=== PATIENT | female | born 1995 | race African-American/Black ===

== ENCOUNTER 2018-08-01 19:22 | Emergency (ER) | payer OTHER, SELFPAY ==
[2018-08-01 19:56] LABS: Bilirubin Negative (Negative); Blood, Urine Large (Negative); Clarity CLEAR (Clear); Glucose, Urine (Dipstick) Negative (Negative); Leukocyte Small (Negative); Nitrite Negative (Negative); Protein, Urine (Dipstick) Negative (Neg-Trace); Specific Gravity, Urine 1.031 (1.002-1.036); pH, Urine 6.5 (5.0-9.0)
[2018-08-01 19:57] LABS: Bacteria/HPF None Seen HPF (None Seen); Hyaline Casts/LPF 0-3 HYALINE CAST LPF (0-3 Hyaline); Pathc Cast-AUWi Flag 0.43 (0-2.49); Squamous Epithelial 0-3 HPF (0-3)
[2018-08-01 19:59] LABS: Pregnancy Test - Urine (BHCG) Negative (Negative); Pregu Control Background? CLEAR/WHITE (CLR/WHITE); Pregu Control Bar Appear? YES (CONTROL BAR); Specific Gravity 1.031 (1.002-1.036)
[2018-08-01] MEDS ORDERED: Ketorolac Tromethamine 60 MG/2 ML VIAL ONE (22:14)
[2018-08-01] MEDS ORDERED: Lidocaine 1% PF 5 ML VIAL ONE ×2 (22:14→22:15)
[2018-08-01] MEDS ORDERED: cefTRIAXone\\ROCEPHIN 1 GM VIAL ONE (22:14)
== END 2018-08-01 22:25 | disposition home or self-care (01) ==
LOC: ERS 19:22
DX: N39.0 Urinary tract infection, site not specified (principal)
CPT/HCPCS: 81003; 81015; 81025; 96372; J0696; J1885; J2001

== ENCOUNTER 2019-01-06 08:14 | Emergency (ER) | payer BC, SELFPAY | END 2019-01-06 09:14 | disposition home or self-care (01) | LOC: ERS 08:14 | DX: J06.9 Acute upper respiratory infection, unspecified (principal) | CPT/HCPCS: 87804; 99284 ==

== ENCOUNTER 2020-04-15 09:23 | Emergency (ER) | payer OTHER ==
[2020-04-15 18:57] LABS: SARS-CoV-2 MS2 Positive; SARS-CoV-2 N Gene Negative; SARS-CoV-2 S Gene Negative; SARS-CoV-2 orf1ab Negative
== END 2020-04-15 10:34 | disposition home or self-care (01) ==
LOC: ERS 09:23
DX: R09.89 Other specified symptoms and signs involving the circulatory and respiratory systems (principal); R06.02 Shortness of breath; R11.0 Nausea; R19.7 Diarrhea, unspecified; R51 Headache; Z20.828 Contact with and (suspected) exposure to other viral communicable diseases
CPT/HCPCS: 87635; 99284; U0003

== ENCOUNTER → 2020-10-21 | Emergency (ER) | payer OTHER | LOC: ERS 00:33 | DX: R09.81 Nasal congestion (principal) | CPT/HCPCS: 99281 ==

== ENCOUNTER 2020-12-03 22:16 | Emergency (ER) | payer MEDICAID, OTHER ==
[2020-12-03 22:44] LABS: Bilirubin Negative (Negative); Blood, Urine Negative (Negative); Clarity Clear (Clear); Glucose, Urine (Dipstick) Normal (Negative); Ketone, Urine Negative (Negative); Leukocyte Negative Leu/uL (Negative); Nitrite Negative (Negative); Protein, Urine (Dipstick) Negative (Neg-Trace); Specific Gravity, Urine 1.023 (1.002-1.036); Urobilinogen Normal mg/dL (Less than 2)
[2020-12-03 22:48] LABS: Pregnancy Test - Urine (BHCG) POSITIVE (Negative); Pregu Control Background? CLEAR/WHITE (CLR/WHITE); Pregu Control Bar Appear? YES (CONTROL BAR); Specific Gravity 1.023 (1.002-1.036)
[2020-12-03 22:53] LABS: #Eosinphils 0.1 thou/uL (0.0-0.7); #Lymphocytes 2.5 thou/uL (1.20-3.40); #Monocytes 0.6 thou/uL (0.11-0.59); #Neutrophils 8.2 thou/uL (1.40-6.50); %Basophils 0.2 % (0.0-1.0); %Eosinophils 0.6 % (0.0-10.0); %Lymphocytes 21.8 % (21.0-51.0); %Monocytes 5.2 % (0.0-10.0); %Neutrophils 72.3 % (42.0-75.0); Hemoglobin 11.9 g/dL (12.0-16.0); Mean Corpuscular HGB CONC 33.8 g/dL (32.0-36.0); Mean Corpuscular Hemoglobin 29.8 pg (27.0-31.0); Mean Platelet Volume 7.5 fL (7.4-10.4); Platelet Count 286 thou/uL (130-400); RBC Distribution Width 12.7 % (11.5-14.5); Red Blood Cell (RBC) Count 3.99 mill/uL (4.20-5.40); White Blood Cell (WBC) Count 11.4 thou/uL (4.8-10.8)
[2020-12-03] MEDS ORDERED: Metoclopramide 10 MG/10 ML UDCUP ONE (23:06)
[2020-12-03] MEDS ORDERED: diphenhydrAMINE 12.5 MG/5 ML UDCUP ONE (23:06)
[2020-12-03] MEDS ORDERED: diphenhydrAMINE 50 MG/ML VIAL ONE (23:08)
[2020-12-03] MEDS ORDERED: Metoclopramide HCl 10 MG/2 ML VIAL ONE (23:08)
[2020-12-03 23:15] LABS: ALT (SGPT) 8 U/L (8-55); AST (SGOT) 10 U/L (5-34); Albumin 3.9 g/dL (3.5-5.0); Alkaline Phosphatase 59 U/L (40-110); Anion Gap 12 mmol/L (10-20); BUN (Urea Nitrogen) 13 mg/dL (7.0-18.7); Bilirubin, Total 0.4 mg/dL (0.2-1.2); Calc. Creatinine Clearance 0 mL/min (70-130); Calcium 8.9 mg/dL (7.8-10.44); Carbon Dioxide 25 mmol/L (22-29); Chloride 101 mmol/L (98-107); Globulin 3.4 g/dL (2.4-3.5); Glucose 109 mg/dL (70-105); Lipase 35 U/L (8-78); Potassium 3.7 mmol/L (3.5-5.1); Protein, Total 7.3 g/dL (6.0-8.3); Sodium 134 mmol/L (136-145)
--- NOTE | 2020-12-03 23:17 | ULT ---
Exam: Transabdominal pelvic ultrasound HISTORY: Vaginal bleeding. Pelvic cramping and pain. Spotting earlier tonight. TECHNIQUE: Transabdominal imaging of the pelvis is normal. FINDINGS: Uterus is identified, without myometrial mass. Uterus measures 6.3 x 5.9 x 8.7 cm Within the endometrium, there is a gestational sac, yolk sac and pole. [place]-rump length is 1.3 cm corresponding to gestational age of 7 weeks 4 days heart tones: 130 bpm No subchorionic hemorrhage Minimal free fluid in the cul-de-sac Neither ovary is appreciated due to bowel gas IMPRESSION: 1. Single intrauterine gestation with heart tones. Gestational age by crown-rump length is 7 we eks 4 day.
--- NOTE | 2020-12-03 23:57 | CT ---
Exam: Head CT without contrast HISTORY: Patient is 7 weeks . Cramping. Headache. COMPARISON: 03/06/2015 FINDINGS: Hemorrhage: No intraparenchymal hemorrhage or extra-axial hematoma. Brain parenchyma: Cortical galo-white matter differentiation is preserved. No mass effect or midline shift. Basilar cisterns are patent. Ventricular system: Ventricles and sulci are patent and symmetric. Calvarium: Intact. Sinuses and mastoid air cells: Adequate aeration. IMPRESSION: No acute intracranial process.
== END 2020-12-04 00:37 | disposition home or self-care (01) ==
LOC: ERS 22:16
DX: O20.0 Threatened abortion (principal); R51.9 Headache, unspecified; Z3A.01 Less than 8 weeks gestation of pregnancy
CPT/HCPCS: 36415; 70450; 76856; 80053; 81003; 81025; 83690; 84702; 85025; 86850; 86900; 86901; 93976; 96365; 96375; J1200; J2765; Q0163

== ENCOUNTER 2021-03-18 08:15 | Outpatient (CLI) | payer OTHER | END 2021-03-18 08:16 | disposition home or self-care (01) | LOC: BICULT 08:15 | PROVIDERS: ATTEND Family Medicine | DX: Z34.82 Encounter for supervision of other normal pregnancy, second trimester (principal); Z3A.21 21 weeks gestation of pregnancy | CPT/HCPCS: 76805 ==